=== PATIENT | female | born 1985 | race Caucasian/White ===

== ENCOUNTER 2021-05-08 16:13 | Emergency (ER) | payer MEDICAID ==
[~2021-05-08] VITALS: Ht 152.4 cm; Wt 59.0 kg
[2021-05-08] MEDS ORDERED: ACETAMINOPHEN 325MG TABLET PO ONE (16:45)
[2021-05-08] MEDS ORDERED: IBUPROFEN 600MG TABLET PO ONE (16:45)
[2021-05-08] MEDS ORDERED: IBUP-2029 MT (17:07)
[2021-05-08 17:22] VITALS: BP 115/64
== END 2021-05-08 17:23 | disposition home or self-care (01) ==
LOC: ER 16:13
DX: M25.571 Pain in right ankle and joints of right foot (principal); M25.561 Pain in right knee; M79.671 Pain in right foot; X50.1XXA Overexertion from prolonged static or awkward postures, initial encounter; Y93.01 Activity, walking, marching and hiking; Y92.89 Other specified places as the place of occurrence of the external cause; Z98.890 Other specified postprocedural states
CPT/HCPCS: 73562; 73610; 73630; 99284